=== PATIENT | male | born 1945 | race African-American/Black ===

== ENCOUNTER 2016-12-20 05:42 | Emergency (ER) | payer OTHER ==
[~2016-12-20] VITALS: Ht 162.6 cm; Wt 72.6 kg
[~2016-12-20 05:42] MED LIST: ACIDOPHILUS1 CAP PO; AMBIEN10 M1 PO; APIX5T PO; CARISOPRODOL350 MG PO; CIMZIA200 MG/ML SC; COLACE100 M1 PO; COUMADIN 1 MG TA1 MG PO; COUMADIN 5 MG TA5 MG PO; COUMADIN2.5 M1 PO; COUMADIN5 M2 PO; DILAUDID2 MG PO; DILTIAZEM240 M1 PO; DIOVAN160 MG PO; DOCUSATE SODIU100 MG PO; ELIQUIS2.5 MG PO; FLORASTOR250 MG PO; GAS RELIEF180 MG PO; HYDROCODONE BIT1 T26 PO; LASIX40 M1 PO; LOPERAMIDE2 MG PO; LOPRESSOR 12.12.5 MG PO; LOVENOX100 MG/1 M SC; MASON NATURAL325 MG PO; MERCAPTOPURINE50 MG PO; METOPROLOL TART25 M1 PO; MIRALAX119 GM PO; MULTI-DAY VITA1 EACH PO; NOVOLOG100 U/ML SC; PANTOPRAZOLE SO40 M1 PO; PERCOCET 5-3251 EACH PO; PREDNISONE 20MG20 MG PO; PREDNISONE20 M1 PO; SENNA PLUS TAB1 EACH PO; SENOKOT8.6 M2 PO; TRAMADOL50 MG PO; TYLENOL TAB 32325 MG PO; ULTRAM(MONOGRAP50 MG PO; VITAMIN D32000 I1 PO; VOLTAREN100 GM TOP; WARFARIN SODIU2.5 M1 PO; WARFARIN SODIUM5 M1 PO
--- NOTE | 2016-12-20 05:56 | ED UPPER/LOWER EXTREMITY COMPL ---
See Addendum History of Present Illness General Chief Complaint: Lower Extremity Problems Stated Complaint: "BIBA PER EMS BILAT.LEG PAIN" Source: patient, family, old records, EMS Exam Limitations: no limitations Vital Signs & Intake/Output Vital Signs & Intake/Output Vital Signs Date Time Temp Pulse Resp B/P B/P Pulse O2 O2 Flow FiO2 Mean Ox Delivery Rate 12/20 0657 86 20 124/69 96 Nasal 2.0L Cannula 12/20 0553 97.6 101 24 169/113 94 Nasal 3.0L Cannula Allergies Coded Allergies: morphine (n/v 02/16/16) Reconcile Medications Diclofenac Sodium (Voltaren) 100 GM GEL..GRAM. 1 KEYANA TOP 4 TIMES/DAY HIP PAIN Furosemide (Lasix) 40 MG TABLET 1 TAB PO EOD DIURETIC (Reported) Metoprolol Tartrate 25 MG TABLET 0.5 TAB PO BID BP (Reported) Multivitamin (Multi-Day Vitamins) 1 EACH TABLET 1 TAB PO DAILY SUPPLEMENT ( Reported) Oxycodone HCl/Acetaminophen (Percocet 5-325 MG Tablet) 1 EACH TABLET 2 TAB PO BID PRN HIP PAIN Pantoprazole Sodium 40 MG TABLET.DR 1 TAB PO DAILY AC GI (Reported) Valsartan (Diovan) 160 MG TABLET 1 TAB PO DAILY BP (Reported) Warfarin Sodium (Coumadin) 2.5 MG TABLET 1 TAB PO ONCE A WEEK BLOOD THINNER ( Reported) ON Warfarin Sodium (Coumadin) 2.5 MG TABLET 5 MG PO BLOOD THINNER (Reported) SUNDAY - SUNDAY Zolpidem Tartrate (Ambien) 10 MG TABLET 0.5 TAB PO QPMP PRN SLEEP (Reported) Triage Note: PT WITH HX DVT BIBA C/O SOB AND BILAT LEG PAIN. PT REPORTS LEFT LEG INTIALLY HURTING 3 DAYS AND THEN THE RIGHT LEG HURTING. PT STATES "MY PAIN IS SO BAD ITS TAKING MY BREATH AWAY" Triage Nurses Notes Reviewed? yes HPI: Patient brought in by ambulance for evaluation of bilateral leg pain. The pain started 3 days ago but has been steadily getting worse. The pain is in his calves as well as his thighs. The pain is cramping in nature. There is no radiation outside of his legs. There is no aggravating or mitigating factors. Patient states the pain is so bad it takes his breath away. Patient denies chest pain. There is no orthopnea. No dyspnea on exertion. Patient uses oxygen at night. (MARCOS ROSEN,WALLY Wbeb) Past History Travel History Traveled to [place] past 21 day No Medical History Any Pertinent Medical History? see below for history Neurological: NONE EENT: NONE Cardiovascular: hypertension, DVT Respiratory: pulmonary embolism, pneumonia, 07/04/2012: Quantiferon testing TB- negative. 2015- TB NEG Gastrointestinal: Crohn's disease, GI BLEED Hepatic: NONE Renal: chronic kidney disease Musculoskeletal: NONE, osteoarthritis Psychiatric: NONE Endocrine: NONE Blood Disorders: anemia Cancer(s): NONE MANAGER STRATEGY/Reproductive: NONE History of MRSA: No History of VRE: No History of CDIFF: No Pneumonia Vaccine: 04/22/15 Surgical History Surgical History: appendectomy, hip replacement, subtotal colectomy with ileorectal anastomosis excision left thigh neuroma IVC FILTER Psychosocial History Who do you live with Spouse Services at Home None What is your primary language Greenlandic Tobacco Use: Quit >30 days ago ETOH Use: denies use Illicit Drug Use: denies illicit drug use Family History Family History, If Any: FATHER DAUGHTER FH: Crohn's disease Relation not specified for: Appendicitis Hx Contributory? No (MARCOS ROSEN,WALLY Webb) Review of Systems Review of Systems Constitutional: Reports: no symptoms. EENTM: Reports: no symptoms. Respiratory: Reports: see HPI, short of breath. Cardiovascular: Reports: no symptoms. Gastrointestinal/Abdominal: Reports: no symptoms. Genitourinary: Reports: no symptoms. Musculoskeletal: Reports: see HPI. Skin: Reports: no symptoms. Neurological/Psychological: Reports: no symptoms. Hematologic/Endocrine: Reports: no symptoms. Immunological: Reports: no symptoms. All Other Systems: Reviewed and Negative (MARCOS ROSEN,WALLY Webb) Physical Exam Physical Exam General Appearance: well developed/nourished, alert, awake, severe distress Head: atraumatic, normal appearance Eyes: Bilateral: PERRL, EOMI. Ears, Nose, Throat: normal pharynx, normal ENT inspection, hearing grossly normal Neck: normal inspection, supple, full range of motion Cardiovascular/Respiratory: normal breath sounds, normal peripheral pulses, regular rate/rhythm, no respiratory distress Back: normal inspection Leg Left: swelling, tenderness Leg Right: swelling, tenderness Neurologic/Tendon: normal sensation, normal motor functions, normal tendon functions Skin: intact, normal color, warm/dry Lymphatic: no anterior cervical michael (MARCOS ROSEN,WALLY Webb) Progress Differential Diagnosis: compartment syndrome, contusion, DVT, sprain Plan of Care: Orders Procedure Date/time Status Telemetry/Motor Transport Inspector 12/20 645 Active US-EXT BILAT VENOUS DOPPLER 12/21 551 Active URINALYSIS 12/21 551 Active PARTIAL THROMBOPLASTIN TIME 12/21 551 Complete PROTHROMBIN TIME 12/21 551 Complete COMPREHENSIVE METABOLIC PANEL 12/21 551 Complete CBC WITHOUT DIFFERENTIAL 12/21 551 Complete EKG 12/20 549 Active Laboratory Tests 12/20/16 0630: Anion Gap 11, Estimated GFR 37 L, BUN/Creatinine Ratio 12.2, Glucose 91, Calcium 8.5, Total Bilirubin 0.4, AST 23, ALT 34, Alkaline Phosphatase 69, Total Protein 6.9, Albumin 3.8, Globulin 3.1, Albumin/Globulin Ratio 1.2 12/20/16 0600: PT 23.3 H, INR 2.24 H, APTT 31, CBC w Diff NO MAN DIFF REQ, RBC 4.99, MCV 71.5 L, MCH 22.2 L, RDW 18.2 H, MPV 8.0, Gran % 53.5, Lymphocytes % 33.3, Monocytes % 9.9 H, Eosinophils % 2.9, Basophils % 0.4, Absolute Granulocytes 3.4, Absolute Lymphocytes 2.1, Absolute Monocytes 0.6, Absolute Eosinophils 0.2, Absolute Basophils 0, PUBS MCHC 31.0 L Diagnostic Imaging: Viewed by Me: Radiology Read, Ultrasound. Discussed w/RAD: Radiology Read, Ultrasound. Initial ED EKG: NSR, nonspecific ST T wave chg, LAFB Prior EKG: unchanged Rhythm Strip: normal sinus rhythm Hand-Off Endorsed To: JASMYNE RAO DO Endorsed Time: 0700 Pending: ultrasound (MARCOS ROSEN,WALLY Webb) Departure Departure Disposition: STILL A PATIENT Condition: Stable Clinical Impression Primary Impression: Leg pain, bilateral Referrals: NAPOLEON ROSEN,TRENT Webb (PCP/Family) Departure Forms: Customer Survey General Discharge Information (MARCOS ROSEN,WALLY Webb) Departure Comments 12/20/16 8:30 AM Patient was signed out to me by Dr. Tolentino. He has some mild nausea from the Dilaudid Lower extremities were evaluated. He has +4 dorsalis pedis pulse on the left and +3 dorsalis pedis pulse on the right. Capillary refill is less than 2 seconds bilaterally. Both feet are warm. He does have lower extremity edema bilaterally ultrasound results are pending.. (MAIRA GREGG,JASMYNE Case.)
[2016-12-20 06:14] LABS: ABSOLUTE BASOPHIL COUNT 0 /CUMM (0.0-0.2); ABSOLUTE EOSINOPHIL COUNT 0.2 /CUMM (0.0-0.7); ABSOLUTE GRANULOCYTE CT 3.4 /CUMM (1.4-6.5); ABSOLUTE LYMPH COUNT 2.1 /CUMM (1.2-3.4); ABSOLUTE MONOCYTE COUNT 0.6 /CUMM (0.10-0.60); BASOPHIL % 0.4 % (0.0-2.0); EOSINOPHIL % 2.9 % (0-5); GRANULOCYTE % 53.5 % (42.2-75.2); HEMATOCRIT 35.7 % (42-52); MEAN CORPUSCULAR HGB 22.2 PG (27.0-31.0); MEAN CORPUSCULAR VOLUME 71.5 FL (80.0-94.0); PLATELET COUNT 287 /CUMM (130-400); RBC DISTRIBUTION WIDTH 18.2 % (11.5-14.5); RED BLOOD CELL CT 4.99 /CUMM (4.70-6.10); WHITE BLOOD CELL COUNT 6.4 /CUMM (4.8-10.8)
[2016-12-20 06:19] LABS: PT 23.3 SEC (9.4-12.5); PTT 31 SEC (25-37)
[2016-12-20] MEDS ORDERED: COUMADIN2.5 M1 PO (06:30)
--- NOTE | 2016-12-20 06:54 | RADIOLOGY REPORT ---
EXAMINATION: XR PORTABLE CHEST CLINICAL INFORMATION: Shortness of breath COMPARISON: 06/14/2016 TECHNIQUE: Portable frontal view of the chest was obtained. FINDINGS: Cardiac leads overlie the chest. The lungs are well expanded. Mild elevation of the right hemidiaphragm remains. There is no focal consolidation, edema, or effusion. No pneumothorax. The cardiomediastinal silhouette is within normal limits. No acute osseous abnormality. IMPRESSION: No acute pulmonary findings.
--- NOTE | 2016-12-20 09:07 | ULTRASOUND REPORT ---
EXAMINATION: US TRIPLEX OF LOWER EXTREMITIES, BILATERAL CLINICAL INFORMATION: Bilateral lower extremity edema and pain COMPARISON: Prior venous ultrasound December 2015 TECHNIQUE: Color-flow triplex imaging with spectral analysis and compression Doppler were performed on the lower extremities. FINDINGS: Right lower extremity: There appears to be some thrombus resulting in lack of compression compression of the posterior portion of the duplicated superficial femoral vein although less prominent than seen on prior ultrasound of October 2015. This was not appreciated on the December 2015 exam. Respiratory variation, normal compression and augmented flow are noted throughout the deep venous system in the remaining lower extremities. The visualized common femoral vein, profunda femoral vein, popliteal vein and midcalf peroneal and posterior tibial venous segments show no evidence of deep venous thrombosis. There is no Shah's cyst. Left lower extremity: Respiratory variation, normal compression and augmented flow are noted throughout the lower extremities. The visualized common femoral vein, superficial femoral vein, profunda femoral vein, popliteal vein and midcalf peroneal and posterior tibial venous segments show no evidence of deep venous thrombosis. There is no Shah's cyst IMPRESSION: Right lower extremity: Findings compatible with persistent or recurrent possibly chronic venous thrombosis in the posterior portion of the duplicated superficial femoral vein and a similar location as that noted on a prior ultrasound in October 2015. Left lower extremity: No evidence for deep vein thrombosis This critical result was discussed with Dr. oYvany Gambino at 9:00 AM approximately on 12/20/2016 and it was ascertained that the content and urgency of the report was understood at the time of direct communication.
[2016-12-20 10:45] VITALS: BP 113/64
== END 2016-12-20 11:00 ==
LOC: ERH 05:42
PROVIDERS: Emergency Medicine
DX: M79.605 Pain in left leg (principal)
CPT/HCPCS: 93005; 93010; 93970; 96374; 96375; J1885

== ENCOUNTER 2016-12-26 15:37 | Observation (INO) | payer OTHER ==
[~2016-12-26] VITALS: Ht 162.6 cm; Wt 72.6 kg
--- NOTE | 2016-12-26 15:59 | NUR ---
PT BIBA FROM HOME FOR C/O BILAT LOWER EXT. SWELLING. PT SEEN HERE LAST WEEK FOR SAME. PT STATES HIS PAIN IS MORE FREQUENT AND IS HAVING TROUBLE SLEEPING. 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 PT HAS APPT. WITH NEURO TOMORROW.
--- NOTE | 2016-12-26 18:07 | ED UPPER/LOWER EXTREMITY COMPL ---
See Addendum History of Present Illness General Chief Complaint: Lower Extremity Injury Stated Complaint: BIBA FOR L LEG PAIN Source: patient, family, old records Exam Limitations: no limitations Vital Signs & Intake/Output Vital Signs & Intake/Output Vital Signs Date Time Temp Pulse Resp B/P B/P Pulse O2 O2 Flow FiO2 Mean Ox Delivery Rate 12/27 1436 98.2 82 20 118/70 96 Nasal 2.0L Cannula 12/27 1004 Nasal 2.0L Cannula 12/27 0957 98.1 80 20 120/77 97 Nasal 2.0L Cannula 12/27 0723 97.3 82 20 118/79 98 Nasal 2.0L Cannula 12/27 0619 96.7 88 18 104/68 95 Nasal 2.0L Cannula 12/27 0520 97.0 77 20 117/63 95 Nasal Cannula / 0445 97.0 82 22 126/76 97 Nasal 2.0L Cannula 12/27 0221 96.5 78 20 122/74 97 Nasal 4.0L Cannula 12/27 0018 96.4 85 20 126/86 95 Nasal 4.0L Cannula 12/26 2250 97.0 83 20 120/93 94 Nasal 4.0L Cannula 12/26 2249 97.0 12/26 2209 85 Nasal 2.0L Cannula 12/26 2000 97.3 80 24 122/68 ED Intake and Output 12/27 0000 12/26 1200 Intake Total 10 Output Total Balance 10 Intake, Oral 10 Patient 160 lb Weight Weight Reported by Patient Measurement Method Allergies Coded Allergies: morphine (n/v 02/16/16) Reconcile Medications Diclofenac Sodium (Voltaren) 100 GM GEL..GRAM. 1 KEYANA TOP 4 TIMES/DAY HIP PAIN Furosemide (Lasix) 40 MG TABLET 1 TAB PO EOD DIURETIC (Reported) Metoprolol Tartrate 25 MG TABLET 0.5 TAB PO BID BP (Reported) Multivitamin (Multi-Day Vitamins) 1 EACH TABLET 1 TAB PO DAILY SUPPLEMENT ( Reported) Oxycodone HCl/Acetaminophen (Percocet 5-325 MG Tablet) 1 EACH TABLET 2 TAB PO BID PRN HIP PAIN Pantoprazole Sodium 40 MG TABLET.DR 1 TAB PO DAILY AC GI (Reported) Valsartan (Diovan) 160 MG TABLET 1 TAB PO DAILY BP (Reported) Vedolizumab (Entyvio) (Unknown Strength) VIAL (Unknown Dose) IV Q6W CROHNS ( Reported) Warfarin Sodium (Coumadin) 5 MG TABLET 1 TAB PO AD BLOOD THINNER (Reported) Warfarin Sodium (Coumadin) 2.5 MG TABLET 1 TAB PO QMON BLOOD THINNER ( Reported) Zolpidem Tartrate (Ambien) 10 MG TABLET 0.5 TAB PO QPMP PRN SLEEP (Reported) Triage Note: PT BIBA FROM HOME FOR C/O BILAT LOWER EXT. SWELLING. PT SEEN HERE LAST WEEK FOR SAME. PT STATES HIS PAIN IS MORE FREQUENT AND IS HAVING TROUBLE SLEEPING. 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 PT HAS APPT. WITH NEURO TOMORROW. Triage Nurses Notes Reviewed? yes Onset: Abrupt Duration: week(s): (worse x 1 week), constant Timing: recent history Severity Numbers: 10 Pain/Injury Location: Bilateral: Leg. Method of Injury: unknown No Modifying Factors: none Associated Symptoms: swelling HPI: 71-year-old male with history of Crohn's, DVT PE with filter in place on Coumadin she's been compliant brought in by an once complaining of progressively worsening bilateral leg pain. Pain is been present for the past 1 week. He was seen at the time at which time an ultrasound showed a chronic DVT. He was discharged home and is scheduled to see pain management tomorrow however he's been taking his oxycodone 7.5 mg without improvement of pain. It is caused him to have inability to walk now. He denies any chest pain abdominal pain shortness of breath fever chills. No rashes to the skin. The swelling to his legs is constant bilaterally no dyspnea with exertion nor orthopnea there is no radiation of the pain outside of his legs. He states the pain is localized from his knee to his groin. No abdominal pain nothing makes it better. his vascular surgeon is dr joaquin (PEDRO LUIS ZEPEDA) Past History Travel History Traveled to [place] past 21 day No Medical History Any Pertinent Medical History? see below for history Neurological: NONE EENT: NONE Cardiovascular: hypertension, DVT Respiratory: pulmonary embolism, pneumonia, 07/04/2012: Quantiferon testing TB- negative. 2015- TB NEG Gastrointestinal: Crohn's disease, GI BLEED Hepatic: NONE Renal: chronic kidney disease Musculoskeletal: NONE, osteoarthritis Psychiatric: NONE Endocrine: NONE Blood Disorders: anemia Cancer(s): NONE DIRECTOR OF SOFTWARE ENGINEERING/Reproductive: NONE History of MRSA: No History of VRE: No History of CDIFF: No Surgical History Surgical History: appendectomy, hip replacement, subtotal colectomy with ileorectal anastomosis excision left thigh neuroma IVC FILTER Psychosocial History Who do you live with Spouse Services at Home None What is your primary language Pakistani Tobacco Use: Never used ETOH Use: denies use Illicit Drug Use: denies illicit drug use Family History Family History, If Any: FATHER DAUGHTER FH: Crohn's disease Relation not specified for: Appendicitis Hx Contributory? No (PEDRO LUIS ZEPEDA) Review of Systems Review of Systems Constitutional: Reports: see HPI. All Other Systems: Reviewed and Negative Comments Review of systems: See HPI, All other systems negative. Constitutional, no chills no fever, no malaise HEENT: No visual changes no sore throat no congestion Cardiovascular: No chest pain , no palpitation Skin: no rashes, no change in skin Respiratory: No dyspnea no cough no sputum GI: No nausea no vomiting, no diarrhea, : No dysuria Muscle skeletal: No joint pain, no joint swelling, no back pain, no neck pain, Neurologic: no headache Psych: No stress Heme/endocrine: No bruising Immunology: No lymphadenopathy (PEDRO LUIS ZEPEDA) Physical Exam Physical Exam General Appearance: well developed/nourished Comments: Well-developed well-nourished person in no acute distress HEENT: Normal EENT exam; PERRL, EOMI, no nystagmus. HEAD is atraumatic. moist mucous membranes. Neck: Supple, no lymphadenopathy, normal range of motion back: notnender Cardiovascular: Regular rate and rhythms no murmurs rubs Respiratory: Chest nontender.There were no bony deformities, no asymmetry. No respiratory distress. Patient speaking in full complete sentences. Breath sounds clear to auscultation bilaterally: NO W/R/R Abdomen: Soft, nontender nondistended, no appreciable organomegaly. Normal bowel sounds. No rebound/guarding, No appreciable enlargement of the abdominal aorta, No ascites. Extremity: 2+ edema bilateral lower extremities, 3+ DP pulse b/l, full range of motion of extremities, normal and equal pulses bilaterally, 5 out of 5 strength noted to bilateral upper and lower extremities Neuro: Alert oriented x3, motor sensory normal There were no obvious focal neurologic abnormalities. Skin: No appreciable rash on exposed skin, skin is warm and dry. Psych: Mood and affect is normal, memory and judgment is normal. (BERENICE SALAS,PEDRO LUIS) Progress Differential Diagnosis: arterial insufficiency, cellulitis, CHF, compartment syndrome, contusion, DVT, fracture, gout, sprain, tendon injury Plan of Care: Orders Procedure Date/time Status Regular Diet 12/27 B Active Discharge Patient 12/27 1616 Active Discharge Patient 12/27 1441 Active PT Evaluate & Treat 12/27 0700 Active Theraputic Activities 15 Min 12/27 UNK Complete PT EVAL LOW COMPLEX 20 MIN 12/[address] in observation 12/26 1941 Active Patient Data 12/26 1941 Active Vital Signs 12/26 1941 Active Code Status 12/26 1941 Active CASE MANAGEMENT CONSULT 12/26 1940 Active PARTIAL THROMBOPLASTIN TIME 12/26 181 Complete PROTHROMBIN TIME 12/26 181 Complete COMPREHENSIVE METABOLIC PANEL 12/26 181 Complete CBC WITHOUT DIFFERENTIAL 12/27 1811 Complete Intake & Output 12/26 1801 Active Current Medications Sig/Rosy Start time Last Medication Dose Stop Time Status Admin Hydromorphone HCl 0.5 MG Q4P PRN 12/27 1400 AC 12/27 (Dilaudid) 1354 Laboratory Tests 12/26/16 1830: Anion Gap 17 H, Estimated GFR 31 L, BUN/Creatinine Ratio 12.4, Glucose 88, Calcium 9.6, Total Bilirubin 0.6, AST 30, ALT 46, Alkaline Phosphatase 72, Total Protein 7.9, Albumin 4.5, Globulin 3.4, Albumin/Globulin Ratio 1.3, PT 22.8 H, INR 2.19 H, APTT 33, CBC w Diff NO MAN DIFF REQ, RBC 4.81, MCV 71.2 L, MCH 22.5 L, RDW 17.3 H, MPV 8.2, Gran % 64.7, Lymphocytes % 25.9, Monocytes % 6.9, Eosinophils % 1.7, Basophils % 0.8, Absolute Granulocytes 5.0, Absolute Lymphocytes 2.0, Absolute Monocytes 0.5, Absolute Eosinophils 0.1, Absolute Basophils 0.1, PUBS MCHC 31.5 L Old records were reviewed, dr rao spoke with vascular on 12/20 in regards to the ultrasound which was chronic -advised to stay on his Coumadin. Labs ordered patient medicated Dilaudid 1 mg IV d./w the pt and family all of his lab rseults, he reports much improvement in pain with medication, pt will be placed in ed obs over night for pain control, pt and case management eval in am. case d/w dr rodríguez agrees withp henry 2200 as called to the patient's bedside as his oxygen saturation was noted to be 89-90% after he was medicated with Dilaudid the patient normally uses 2 L of oxygen at night. He denies shortness of breath dizziness lightheadedness. He has no complaints at this time mentating well we will give him a breathing treatment and continue to monitor us 12/20: IMPRESSION: Right lower extremity: Findings compatible with persistent or recurrent possibly chronic venous thrombosis in the posterior portion of the duplicated superficial femoral vein and a similar location as that noted on a prior ultrasound in October 2015. Left lower extremity: No evidence for deep vein thrombosis This critical result was discussed with Dr. Yovany Rao at 9:00 AM approximately on 12/20/2016 and it was ascertained that the content and urgency of the report was understood at the time of direct communication. IMPRESSION: 1. There is a grade 1 anterolisthesis of L4 on L5. There are bilateral foraminal disc protrusions, slightly more prominent on the right and there may be impingement on the exiting right L4 nerve root. 2. There is multilevel facet arthropathy. 3. There is no central stenosis. (PEDRO LUIS ZEPEDA) Diagnostic Imaging: Viewed by Me: Radiology Read. Discussed w/RAD: Radiology Read. Radiology Impression: PATIENT: ZACH HEATON PRESENT AGE: 71 PATIENT ACCOUNT NO: [id number] : 45 LOCATION: [facility] [place] ORDERING PHYSICIAN: WALLY RODRÍGUEZ MD SERVICE DATE: 12/26/16 EXAM TYPE: RAD - XRY-PORTABLE CHEST XRAY EXAMINATION: XR PORTABLE CHEST CLINICAL INFORMATION: Shortness of breath COMPARISON: 12/20/2016 TECHNIQUE: Portable frontal view of the chest was obtained. FINDINGS: Low lung volumes with elevated right hemidiaphragm. No dense consolidation, edema, or effusion. No pneumothorax. The cardiomediastinal silhouette is unchanged. IMPRESSION: Low lung volumes with elevated right hemidiaphragm. No dense consolidation. DICTATED BY: NYASIA ROSEN,SUNIL DATE/TIME DICTATED:12/26/162254 VICE PRESIDENT OF TALENT ACQUISITION:TRINO DATE/ TIME TRANSCRIBED:12/26/162254 CONFIDENTIAL, DO NOT COPY WITHOUT APPROPRIATE AUTHORIZATION. <Electronically signed in Other Vendor System> SIGNED BY: SUNIL MURRELL MD 12/26/162304 (PEDRO LUIS ZEPEDA) Radiology Impression: PATIENT: ZACH HEATON PRESENT AGE: 71 PATIENT ACCOUNT NO: [id number] : 45 LOCATION: [facility] [place] ORDERING PHYSICIAN: WALLY RODRÍGUEZ MD SERVICE DATE: 12/26/16 EXAM TYPE: RAD - XRY-PORTABLE CHEST XRAY EXAMINATION: XR PORTABLE CHEST CLINICAL INFORMATION: Shortness of breath COMPARISON: 12/20/2016 TECHNIQUE: Portable frontal view of the chest was obtained. FINDINGS: Low lung volumes with elevated right hemidiaphragm. No dense consolidation, edema, or effusion. No pneumothorax. The cardiomediastinal silhouette is unchanged. IMPRESSION: Low lung volumes with elevated right hemidiaphragm. No dense consolidation. DICTATED BY: SUNIL MURRELL MD DATE/TIME DICTATED:12/26/162254 VICE PRESIDENT OF TALENT ACQUISITION:TRINO DATE/ TIME TRANSCRIBED:12/26/162254 CONFIDENTIAL, DO NOT COPY WITHOUT APPROPRIATE AUTHORIZATION. <Electronically signed in Other Vendor System> SIGNED BY: SUNIL MURRELL MD 12/26/162304 Hand-Off Endorsed To: BOBO BOSS MD Endorsed Time: 0700 Pending: consult (WALLY RODRÍGUEZ MD) Hand-Off Endorsed To: YOVANY RAO DO Endorsed Time: 1500 Pending: other (bed search) (BOBO BOSS MD) Departure Departure Time of Disposition: 1937 Condition: Stable Clinical Impression Primary Impression: Leg pain Secondary Impressions: Chronic renal insufficiency, Gait instability Referrals: NAPOLEON ROSEN,TRENT Webb (PCP/Family) Departure Forms: Customer Survey General Discharge Information Observation Note Spoke With: WALLY RODRÍGUEZ MD Physician Advisor Notified: WALLY RODRÍGUEZ MD Place Patient In: ED Observation Rationale for Observation: My rational for observation is as follows [PAIN CONTROL, PATIENT HAS REQUIRED IVP AIN CONTROL, WILL REQUIRE PT CONSULT FOR POSSIBLE REHAB PLACEMENT, PREMATURE DISCHARGE WOULD BE MEDICALLY HARMFUL PATIENTS GAIT NOT AT BASELINE (PEDRO LUIS ZEPEDA) Departure Disposition: STILL A PATIENT PA/ELEMENTARY SCIENCE TEACHER Co-Sign Statement Statement: ED Attending supervision documentation- [X] I saw and evaluated the patient. I have also reviewed all the pertinent lab results and diagnostic results. I agree with the findings and the plan of care as documented in the PA's/ELEMENTARY SCIENCE TEACHER's documentation. [X] I have reviewed the ED Record and agree with the PA's/ELEMENTARY SCIENCE TEACHER's documentation. [] Additions or exceptions (if any) to the PAs/ELEMENTARY SCIENCE TEACHER's note and plan are summarized below: [] (MARCOS ROSEN,WALLY Webb) Departure Comments 12/27/16 4:20 pm The patient was signed out to me by Dr. Boss. He is pending transport to [place] for short-term rehabilitation. He was observed and was unable to ambulate without significant pain and difficulty.It was therefore determined that he would best be served by short-term rehabilitation and further outpatient workup. He is being anticoagulated and is currently on Coumadin INR today was 2.1. He is on home O2. (YOVANY RAO DO) ED Attending Observation Initial Observation Note: I have seen and personally examined ZACH HEATON on 12/26/16 at 1942. I agree with the current emergency department documentation. The disposition (admission or discharge) is uncertain at this time, he needs a period of observation for the following reason(s): [Intractable pain in his left leg. His workup has been negative however he is require pain control. Patient will have physical therapy evaluation and management evaluation of the morning. It is painful to be controlled with medications the patient may be able to be discharged to short-term rehabilitation however if his pain cannot be controlled on admission to the hospital for further workup.] The ED Nurse caring for this patient has been personally informed as to what the patient is being observed for. Observation Re-Evaluation: I have reevaluated ZACH HEATON on 12/26/16 at 2241. The physical findings that support the continued need to observe this patient include [patient wears nocturnal oxygen. Patient oxygen saturation is running a little low at 92%. His states that his legs have been more swollen than normal. Patient does have fine bibasilar rales. His oxygen has been increased to 4 L. Patient will have a chest x-ray and 40 mg of IV Lasix and reevaluate. If the patient improves then continue with the current plan however if his oxygen and remained so he may require admission to the hospital for pulmonary edema.]. (MARCOS ROSEN,WALLY Webb) Observation Re-Evaluation: I have reevaluated ZACH HEATON on 12/27/16 at 1030. The physical findings that support the continued need to observe this patient include continued pain, inability to ambulate.. (GERA ROSEN,BOBO) Initial Observation Note: I have seen and personally examined ZACH HEATON on 12/27/16 at 1601. I agree with the current emergency department documentation. The disposition (admission or discharge) is uncertain at this time, he needs a period of observation for the following reason(s): [pain control] The ED Nurse caring for this patient has been personally informed as to what the patient is being observed for. (YOVANY RAO DO)
--- NOTE | 2016-12-26 18:10 | NUR ---
PT CRYING IN PAIN.
--- NOTE | 2016-12-26 18:10 | NUR ---
EXAMINED BY MARITZA NG.
--- NOTE | 2016-12-26 18:36 | NUR ---
MEDICATED FOR PAIN.
--- NOTE | 2016-12-26 18:36 | NUR ---
LABS SENT (BLUE,SST,LAV,SIERRA)
[2016-12-26] MEDS ORDERED: COUMADIN5 M2 PO (18:41)
[2016-12-26] MEDS ORDERED: COUMADIN2.5 M1 PO (18:42)
[2016-12-26] MEDS ORDERED: ENTYVIO300 M1 IV (18:43)
[2016-12-26 18:52] LABS: ABSOLUTE BASOPHIL COUNT 0.1 /CUMM (0.0-0.2); ABSOLUTE EOSINOPHIL COUNT 0.1 /CUMM (0.0-0.7); ABSOLUTE MONOCYTE COUNT 0.5 /CUMM (0.10-0.60); BASOPHIL % 0.8 % (0.0-2.0); EOSINOPHIL % 1.7 % (0-5); GRANULOCYTE % 64.7 % (42.2-75.2); HEMATOCRIT 34.3 % (42-52); MEAN CORPUSCULAR HGB 22.5 PG (27.0-31.0); MEAN CORPUSCULAR HGB CONC 31.5 G/DL (33.0-37.0); MEAN CORPUSCULAR VOLUME 71.2 FL (80.0-94.0); MEAN PLATELET VOLUME 8.2 FL (7.4-10.4); PLATELET COUNT 265 /CUMM (130-400); RBC DISTRIBUTION WIDTH 17.3 % (11.5-14.5); RED BLOOD CELL CT 4.81 /CUMM (4.70-6.10); WHITE BLOOD CELL COUNT 7.7 /CUMM (4.8-10.8)
[2016-12-26 18:57] LABS: PT 22.8 SEC (9.4-12.5); PTT 33 SEC (25-37)
--- NOTE | 2016-12-26 19:21 | NUR ---
PT SLEEPING ON STRETCHER. NO APPARENT DISTRESS NOTED
--- NOTE | 2016-12-26 19:41 | NUR ---
MARITZA NG AT BEDSIDE TO DISCUSS POC. PT TO BE PLACED ON ED OBSERVATION FOR PHYSICAL THERAPY EVAL TOMMORROW MORNING
--- NOTE | 2016-12-26 21:37 | NUR ---
ATTEMPTED TO ASSIST PT TO COMMODE WITH LESVIA MCDERMOTT. PT WAS EXTREMLY WEAK AND BEGAN TO HAVE SHORTNESS OF BREATH. PT PLACED ON COMMODE. SPO2 ASSESED AND DECREASED TO 85% ON RA. PT GIVEN 2LPM O2 VIA NC. SPO2 INCREASED TO 94% ON O2. MARITZA KLINE
--- NOTE | 2016-12-26 22:03 | NUR ---
PT MEDICATED WITH DILAUDID 1MG IVP. PT SPO2 87% ON 2LPM. PT DENIED SOB AND PAIN OTHER THAN IN LOWER EXTREMITY. O2 INCREASED TO 3LPM. MARITZA NG AT BEDSIDE FOR EVAL. RESPIRATORY PAGED FOR MARIANNE KOCH
--- NOTE | 2016-12-26 22:11 | NUR ---
RESPIRATORY AT BEDSIDE FOR TREATMENT
--- NOTE | 2016-12-26 22:33 | NUR ---
LAGUNAS AT BEDSIDE TO DISCUSS POC
--- NOTE | 2016-12-26 22:40 | NUR ---
PORTABLE X-RAY AT BEDSIDE
--- NOTE | 2016-12-26 22:49 | NUR ---
PT MEDICATED WITH LASIX 40MG IVP AND OFIRMEV 1,000MG IV
--- NOTE | 2016-12-26 23:05 | RADIOLOGY REPORT ---
EXAMINATION: XR PORTABLE CHEST CLINICAL INFORMATION: Shortness of breath COMPARISON: 12/20/2016 TECHNIQUE: Portable frontal view of the chest was obtained. FINDINGS: Low lung volumes with elevated right hemidiaphragm. No dense consolidation, edema, or effusion. No pneumothorax. The cardiomediastinal silhouette is unchanged. IMPRESSION: Low lung volumes with elevated right hemidiaphragm. No dense consolidation.
--- NOTE | 2016-12-26 23:59 | NUR ---
PT SLEEPING ON STRETCHER. NO APPARENT DISTRESS NOTED
--- NOTE | 2016-12-27 02:20 | NUR ---
PT PLACED ON BED REED IN ATTEMPT TO HAVE BM WITH NEGATIVE RESULTS. PT BEGAN COMPLAINING OF NAUSEA AND VOMITED GREEN EMISIS. PT MEDICATED WITH ZOFRAN 4MG IVP
--- NOTE | 2016-12-27 03:06 | NUR ---
PT'S , LILIAN, GOING HOME FOR THE NIGHT. SHE CAN BE REACHED VIA HOME PHONE OR CELL PHONE
--- NOTE | 2016-12-27 03:31 | NUR ---
PT REPORT RECEIVED FROM LM GROVER, PT CARE ASSUMED. PT RESTING COMFORTABLY AT THIS TIME AND AWAITING PT EVAL IN AM.
--- NOTE | 2016-12-27 04:45 | NUR ---
PT C/O OF INCREASED LEG PAIN, DR RODRÍGUEZ AWARE. PT MEDICATED WITH 0.5MG OF IV DILUADID PER eMAR.
--- NOTE | 2016-12-27 05:20 | NUR ---
PT REPORTS RELIEF FROM DILAUDID, VSS NOTED
--- NOTE | 2016-12-27 06:28 | NUR ---
BP RESPONDING TO LOPRESSOR, BP164/70, HR 78 AWARE
--- NOTE | 2016-12-27 07:24 | NUR ---
PT AWAKE AND ALERT FOR VITALS AT THIS TIME, AWARE THAT HE WILL BE EVALUATED BY PT THIS AM. AT THIS TIME PT WPOULD LIKE TO WAIT TO EAT BREAKFAST
--- NOTE | 2016-12-27 08:30 | NUR ---
PT EVALUATED BY PT, PT STATES THAT PT NEEDS REHAB.
--- NOTE | 2016-12-27 08:42 | NUR ---
PT SITTING UP IN CHAIR COMPLAINS OF NAUSEA MEDICATED PER ORDER
--- NOTE | 2016-12-27 09:26 | NUR ---
12/27 CASE MGMT- MET WITH PT AND PT FAMILY- INTRODUCED SELF AND EXPLAINED ROLE OF LANDING SIGNAL OFFICER. PT AWARE THAT PT IS SUGGESTING SHORT TERM REHAB. BROCHURE WITH FACILITIES GIVEN TO PT AND AWARE THAT I WILL RETURN FOR CHOICES OF FACILITIES SHORTLY. CASE MGMT WILL CONTINUE TO FOLLOW.
--- NOTE | 2016-12-27 09:57 | NUR ---
PT RESTING ON STRETCHER AWAKE AND ALERT FOR VITALS, FAMILY AT BEDSIDE AWARE THAT CASE MANAGEMENT IS SEARCHING FOR REHAB UNIT
--- NOTE | 2016-12-27 10:25 | NUR ---
12/27 CASE MGMT- PT FIRST CHOICE [facility], SECOND CHOICE [facility]OP [facility] AND THIRD CHOICE [facility]. MIMR DONE, W10 STARTED, COMMON KEYANA DONE, BED SEARCH BEING PERFORMED. CASE MGMT WILL CONTINUE TO FOLLOW.
--- NOTE | 2016-12-27 10:53 | NUR ---
PT REQUESTING PAIN MEDS FOR HER LEG PAIN AT THIS TIME. MD KLINE
--- NOTE | 2016-12-27 11:06 | NUR ---
PT MEDICATED FOR LEG PAIN, REPOSITIONED IN BED AT THIS TIME. DAUGHTER REMAINS AT BEDSIDE
--- NOTE | 2016-12-27 12:03 | NUR ---
PT NOTED TO BE SLEEPING AT THIS TIME REGULAR RESP RATE NOTED AND CASE MANAGEMENT CONTINUES TO LOOK FOR PLACEMENT
--- NOTE | 2016-12-27 12:38 | NUR ---
12/27 CASE MGMT- BED SEARCH STILL BEING PERFORMED. CASE MGMT WILL CONTINUE TO FOLLOW.
--- NOTE | 2016-12-27 13:55 | NUR ---
PT MEDICATED FOR PAIN ORDERED
--- NOTE | 2016-12-27 14:03 | NUR ---
PT PROVIDED WITH ICE CHIPS. PER DAUGHTER PT HAS BEEN AVAILABLE AT [facility] [place]. PT AND FAMILY AWARE THAT WE ARE WAITING ON PAPERWORK AND THEN TRANSPORT WILL BE CALLED, PT REPOSITIONED IN BED , PROVIDED WITH ICE CHIPS PER HIS REQUEST. FOOD TRAY ORDERED DUE TO PT DID NOT FEEL LIKE EATING EARLIER
--- NOTE | 2016-12-27 14:03 | NUR ---
ZACH HEATON Nurse Note by: MARLEN YOUSIF. I agree with the BENCH HAND findings/evaluation of this patient's condition. Entered by: MARLEN YOUSIF Date: 12/27/16 Time: 1483
[2016-12-27 14:36] VITALS: BP 118/70
--- NOTE | 2016-12-27 14:41 | NUR ---
12/27 case mgmt- SPOKE WITH MASON AT [facility],SHE SPOKE WITH MINH CASE MGMT DEPT ALREADY AND HAS AUTH FROM [facility] AND IS OFFERING PT A BED FOR TODAY. PT AND PT AWARE AND IN AGREEMENT WITH PLAN FOR D/C TO [facility]. ENVELOPE BEING GATHERED. MARLEN GROVER AWARE TO CALL FOR REPORT AND WILL PROVIDE PHONE NUMBER FOR REPORT. DR BOSS AWARE.
--- NOTE | 2016-12-27 14:56 | NUR ---
REPORT CALLED TO MEJIA
== END 2016-12-27 16:22 ==
LOC: ERH 15:37 → ERHI 19:42
PROVIDERS: Physician Assistant Medical; ADMIT Emergency Medicine
DX: M79.662 Pain in left lower leg (principal); Z86.718 Personal history of other venous thrombosis and embolism; Z79.01 Long term (current) use of anticoagulants; K50.90 Crohn's disease, unspecified, without complications; I12.9 Hypertensive chronic kidney disease with stage 1 through stage 4 chronic kidney disease, or unspecified chronic kidney disease; N18.9 Chronic kidney disease, unspecified
CPT/HCPCS: 1263; 6090; 96374; 96375; 96376; 97161-GP; 97530-GP; G0378; J0131; J1940; J2405

== ENCOUNTER 2017-09-10 03:55 | Inpatient (IN) | payer OTHER ==
[~2017-09-10] VITALS: Ht 162.6 cm; Wt 72.6 kg
[~2017-09-10 03:55] MED LIST changes: +CYCLOBENZAPRINE10 M1 PO; +CYCLOBENZAPRINE5 M2 PO; +DAILY VALUE1 EACH PO; +ENTYVIO300 M1 IV; +FERROUS SULFAT325 M2 PO; +FUROSEMIDE40 M1 PO; +LIDODERM1 EACH TOP; +Lidoderm EXT; +PERCOCET 10-321 EACH PO; +VITAMIN C500 M4 PO; +VITAMIN D2000 UNI1 PO
[2017-09-10 06:47] LABS: PT 11.4 SEC (9.4-12.5)
[2017-09-10 09:17] LABS: ABSOLUTE BASOPHIL COUNT 0 /CUMM (0.0-0.2); ABSOLUTE EOSINOPHIL COUNT 0.3 /CUMM (0.0-0.7); ABSOLUTE GRANULOCYTE CT 2.9 /CUMM (1.4-6.5); ABSOLUTE LYMPH COUNT 1.4 /CUMM (1.2-3.4); ABSOLUTE MONOCYTE COUNT 0.4 /CUMM (0.10-0.60); BASOPHIL % 0.8 % (0.0-2.0); EOSINOPHIL % 5.2 % (0-5); GRANULOCYTE % 57.5 % (42.2-75.2); MEAN CORPUSCULAR HGB CONC 32.4 G/DL (33.0-37.0); MEAN CORPUSCULAR VOLUME 83.1 FL (80.0-94.0); MEAN PLATELET VOLUME 7.9 FL (7.4-10.4); PLATELET COUNT 179 /CUMM (130-400); RBC DISTRIBUTION WIDTH 17.5 % (11.5-14.5); RED BLOOD CELL CT 4.21 /CUMM (4.70-6.10)
--- NOTE | 2017-09-10 11:17 | Operative Report ---
Operative/Inv Procedure Report Surgery Date: 09/10/17 Name of Procedure: 1. C3-7 laminectomy 2. 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 Operative/Procedure Note Note: Patient was taken the operating room. After appropriate patient identification and surgical timeout, the patient had neurophysiologic monitoring leads placed and baseline recordings were obtained. He then underwent the smooth induction of general endotracheal anesthesia without incident with the neck in a neutral position. Monitoring was stable. A Tyler catheter was sterilely inserted. DVT prophylaxis was utilized throughout the case. Patient was given 2 g of IV Kefzol and preoperative prophylaxis. With all tubes and lines secured in the blood pressure well controlled, the patient was placed in the Schmidt 3 point head fixation device was applied and carefully turned to the prone position on gel rolls taking care to ensure that all pressure points were well-padded. The neck was maintained in a neutral to slightly lordotic position and fixed to the table. Monitoring was stable with the patient to the prone position. Shoulders were retracted downward with tape. The posterior neck was widely prepped and draped in usual sterile fashion using povidone iodine solution. A vertical midline skin incision was marked from C2- T1 and infiltrated with 10 mL of local anesthetic. Skin incision was made with a 10 blade knife. Dissection was carried down through the subcutaneous tissue with the Bovie the ligamentum nuchae a. Ligament was incised in the midline and a subperiosteal dissection of the cervical paravertebral muscles was performed bilaterally with the Bovie exposing underlying spinous processes lamina and facet joints bilaterally. We extended the exposure to the lateral aspect of the lateral masses from C3 to C7 bilaterally and self-retaining retractors were placed beneath the muscle. A Eldridge 4 elevator was placed in the presumed C3/4 facet joint and a lateral cervical x-ray was obtained and confirmed this to be the correct level. With the levels verified, we proceeded to drilling the lateral masses and decoritcating the facet joints with the drill prior to screw insertion. Entry points for the lateral mass screws were selected from C3 to C7 bilaterally, medial to the midpoint of the lateral mass and marked with a soo bur. Screw holes were then drilled using the Neurescue to a depth of 12 mm and with a 30 lateral and rostral angulation. All holes were palpated with a ball-tipped probe and showed no evidence of cortical breakthrough. The holes were sounded with a ball-tipped probe and showed no evidence of cortical breakthrough. A laminectomy of C3, C4, C5, C6, and the rostral half of C7 was performed using combination of the bone scalpel and Kerrison rongeurs. Bone was passed off to the back table and saved for arthrodesis. Hemostasis was obtained with irrigation and flowseal in the lateral epidural gutters. The facet joints of C3 4, C4 5, C5 6, and C6 7 were packed with morcellated autograft packed bilaterally as well as over the dorsal aspect of the lateral masses which were also decorticated. We then placed a 3.5 x 12 mm screws bilaterally from C3 to C7 without complication. 70 mm titanium rods were then gently lordosis and top loaded into the screws from C3 to C7 bilaterally. Locking caps were placed. Screws were then finally tightened with an antitorque device. Meticulous hemostasis was achieved using combination of bipolar and Surgifoam. Neurophysiologic monitoring was noted to be stable following the decompression and placement of the instrumentation. The wound was copiously irrigated with sterile saline irrigation. A medium RICK drain was placed into the wound and secured to the skin with a 2-0 nylon suture. We then began wound closure. Deep muscle was reapproximated with interrupted 0 Vicryl suture. The ligamentum nuchae was reapproximated with interrupted 0 Vicryl suture and the subcutaneous tissue was irrigated and closed in layers with a 2-0 Vicryl suture. The skin was closed with landy. The wound was cleaned and dried. Bacitracin and a sterile occlusive dressing was placed. Placed in a hard cervical collar, taken out of the [place] and returned to the supine position. He was taken out of the Schmidt, awakened, extubated, and taken to PACU in stable condition. He was noted to be moving all 4 extremities at the completion of the case. All sponge, needle, and instrument counts were correct at the completion of the procedure 3. Neurophysiologic monitoring was stable. Discharge Disposition: PACU
--- NOTE | 2017-09-10 11:23 | Operative Report ---
Operative/Inv Procedure Report Surgery Date: 09/10/17 Name of Procedure: C3 to C7 laminectomy and posterior fusion using autograft use of [employer] lateral mass system Pre-Operative Diagnosis: Cervical spondylitic myelopathy Post-Operative Diagnosis: Same Estimated Blood Loss: 50ml to 100ml Surgeon/Oracle Iam Consultant: Hubert Valdivia MD,Marina Bonilla Anesthesia: general endotracheal tube Operative/Procedure Note Note: After successful administration of general endotracheal anesthesia all lines tubes and monitors were placed by the anesthesia team the patient was positioned in Schmidt fixation prone on longitudinal gel rolls and all pressure points padded. We palpated the spinous process of C3 through C7, 10 mL of lidocaine with epinephrine was infiltrated in subcutaneous tissues after the patient was prepped and draped in usual standard fashion. A #10 blade was used to incise the skin and We deepened the incision with Bovie cautery down to the deep cervical fascia which was divided and a subperiosteal dissection was carried out exposing the spinous processes and lamina of C3 4 567. We exposed the lateral aspect of the transverse processes, we confirmed level with fluoroscopic guidance after levels were confirmed we denuded the joint spaces drill ship pilot holes the [place] in the mid position of the lateral masses of C3 4 5 6 and 7 this was deepened with a 12 mm drill and tapped with the appropriate tap. All holes were palpated, we then used the bone scalpel to make cuts the lateral aspect of the lamina at the junction of lateral masses bilaterally removing the lamina of C3 4 5 6 and the superior aspect lamina of C7, motors and sensors were stable after the decompression. We then placed 3.5 x 12 mm lateral mass screws at C3 4 5 6 and 7 the lateral aspects of the lateral masses were decorticated as were the joints and packed with morselized autograft. We then placed contoured 70 mm rods bilaterally and locked in place with the set screws with a torque limiting flatbed truck driver. We copiously irrigated with bacitracin irrigation placed 1 g Vanco powder in the soft tissues thecal sac was pulsatile was no bleeding or CSF leak, the wound was then closed in layers after a separate stab incision made for a #7 RICK drain to be placed subfascially with 0 Vicryls for the muscle and fascia 2-0 Vicryl deep dermis and skin was closed with landy of no on closing 20 mL of Exparel was infiltrated in subcutaneous tissues and muscles on closing. At the end the case a dry sterile dressing was applied all needle counts sponge and instruments were correct patient to recovery in stable condition. The patient was placed in a hard cervical collar.
[2017-09-10 14:32] VITALS: BP 127/77
--- NOTE | 2017-09-10 16:42 | Admission Core Measures ---
Acute Coronary Syndrome (CM) ACS Core Measures Acute Coronary Syndrome Diagnosis No Congestive Heart Failure (NEW) CHF Core Measures Congestive Heart Failure Diagnosis No Cerebrovascular Accident (NEW) CVA Core Measures CVA/TIA Diagnosis No Venous Thromboembolism VTE Core Sophia (View Protocol) VTE Risk Factors Surgery No Mechanical VTE Prophylaxis d/t N/A MechProphylax Ordered No VTE Pharm Prophylaxis d/t NA PharmProphylax ordered Problem List As ranked by this Provider includes Assessment & Plan 1. Cervical spinal stenosis HOME MEDS Home Med List Ascorbic Acid (Vitamin C) 500 MG TAB.CHEW 1 TAB PO DAILY SUPPLEMENT (Reported ) Cholecalciferol (Vitamin D3) (Vitamin D) 2,000 UNIT TABLET 1 TAB PO DAILY supplement (Reported) Cyclobenzaprine HCl (Unknown Strength) TABLET (Unknown Dose) PO QPM MUSCLE RELAXANT (Reported) Furosemide 40 MG TABLET 1 TAB PO PRN EDEMA (Reported) Metoprolol Tartrate 25 MG TABLET 0.5 TAB PO BID BP (Reported) Multivitamin (Daily Value) 1 EACH TABLET 1 TAB PO DAILY VITAMIN SUPPORT ( Reported) Oxycodone HCl/Acetaminophen (Percocet 5-325 MG Tablet) 5 MG-325 MG TABLET 1 TAB PO 4 TIMES/DAY PRN PAIN (Reported) Valsartan (Diovan) 160 MG TABLET 1 TAB PO DAILY BP (Reported) Vedolizumab (Entyvio) (Unknown Strength) VIAL (Unknown Dose) IV Q8W CROHNS ( Reported) Warfarin Sodium (Coumadin) 5 MG TABLET 1 TAB PO DAILY BLOOD THINNER (Reported )
--- NOTE | 2017-09-10 16:48 | PN- Neurosurgical ---
Subjective Subjective: POC sleepy, though comfortable after getting pain med. +uo via boateng. no oob yet. awaiting meal. denies cp/sob/n/v Objective Vital Signs and I&Os Vital Signs Date Time Temp Pulse Resp B/P B/P Pulse O2 O2 Flow FiO2 Mean Ox Delivery Rate 09/10 1432 94 Nasal 2.0L Cannula 09/10 1432 97.7 89 17 127/77 94 Nasal 2.0L Cannula Intake & Output 09/10 1600 09/10 0800 09/10 0000 09/09 1600 09/09 0800 09/09 0000 Intake Total Output Total Balance Patient 160 lb Weight Weight Reported by Patient Measurement Method Physical Exam: gen- nad, sleepy card- s1s2 rrr pulm- ctab back/neck- collar in place. per RN, scant bloody staining on dressing (just assessed and repositoned pt) ext- moves 4 extremities, follows commands, gross sensate intact, limited motor and limited strength all 4 extremities, RLE weaker than left, bl ue Assessment/Plan Assessment/Plan A- POD0 sp C3-7 lami with posterior fusion for C3-7 stenosis with myelopathy and kyphosis, wheelchair bound at baseline preop due to above dx, with multiple medical comorbidities (hx dvt/pe, ckd, chf, pulm htn, crohns, htn), currently stable with continued weakness in 4 extremities P- prn pain meds home meds, hold home coumadin alps hepsq to start pod1 strict I&Os hilton to self suction, keep in place until <20cc per shift ancef q8 while drain in place per attending dc boateng in am HL after 2L ivf hh diet as tolerated OOB with PT/ OT tomorrow c-collar at all times bl venous doppler in am (hx dvt/pe) case anna- and Pt desire placement at [facility] continue care as full admission will dw attending Core Measures Venous Thromboembolism VTE Risk Factors Surgery No Mechanical VTE Prophylaxis d/t N/A MechProphylax Ordered No VTE Pharm Prophylaxis d/t NA PharmProphylax ordered
[2017-09-10 19:10] VITALS: BP 132/68
[2017-09-10 21:10] VITALS: BP 136/70
--- NOTE | 2017-09-10 22:07 | RADIOLOGY REPORT ---
EXAMINATION: CR CERVICAL SPINE/INTRAOPERATIVE FLUOROSCOPY CLINICAL INDICATION: C3-C7 laminectomy. COMPARISON: CT scan of the cervical spine dated 08/30/2017. TECHNIQUE/FINDINGS: Fluoroscopic equipment was dedicated to the operating room for the performance of an intraoperative procedure. Single spot film was acquired and is archived in PACS. Surgical devices are seen overlying the posterior elements of the C3 vertebral body. Poorly visualized is a surgical instrument overlying the posterior elements of presumably the C5 vertebral body. Please refer to operative notes for procedural detail. FLUOROSCOPY TIME: 8 seconds. IMPRESSION: Administrative dictation for intraoperative fluoroscopy and image archiving in PACS. Please refer to operative notes for details.
[2017-09-11] VITALS (8 sets, daily range): BP systolic 120–157; BP diastolic 60–84
--- NOTE | 2017-09-11 07:28 | PN- Neurosurgical ---
See Addendum Subjective Subjective: Pt with incisional post neck pain reasonably controlled with iv dilaudid, oral percocet. No new neurological complaints. Objective Vital Signs and I&Os Vital Signs Date Time Temp Pulse Resp B/P B/P Pulse O2 O2 Flow FiO2 Mean Ox Delivery Rate 09/11 0400 99.0 79 20 134/76 91 09/11 0000 Nasal 3.0L Cannula 09/11 0000 99.7 82 20 136/84 96 09/10 2122 87 136/70 09/10 2109 98.5 87 20 136/70 92 Nasal 3.0L Cannula 09/10 191 98.6 78 20 132/68 91 Nasal 2.0L Cannula 09/10 1700 Nasal 3.0L Cannula 09/10 1600 94 Nasal 3.0L Cannula 09/10 143 94 Nasal 2.0L Cannula 09/10 143 97.7 89 17 127/77 94 Nasal 2.0L Cannula Intake & Output 09/11 0800 09/11 0000 09/10 1600 09/10 0800 09/10 0000 09/09 1600 Intake Total 210 370 Output Total 290 42 Balance -80 328 Intake, IV 210 70 Intake, Oral 300 Output, 40 42 Drainage Output, Urine 250 Patient 72.575 kg Weight Weight Reported by Patient Measurement Method Physical Exam: AF, VSS awake and alert incision is flat with min serosanguinous stain on dressing RICK with 78cc over last shift, serosanguinous neuro exam with stable spasticity bilat LE more than UE, strength maintained samson dinner last night boateng out this am on abx no LE edema, using IS with low lung volumes Current Medications: Current Medications Sig/Rosy Start time Last Medication Dose Route Stop Time Status Admin Acetaminophen 650 MG Q4P PRN 09/10 1300 AC PO Acetaminophen 1,000 MG .STK-MED ONE 09/10 1035 DC IV 09/10 1036 Bisacodyl 10 MG DAILY NEEDED PRN 09/10 1300 AC VT Cefazolin Sodium 2 GM IQ8 09/10 1600 AC 09/11 N/A 1 UNIT IV 09/13 0029 0031 Cefazolin Sodium 2,000 MG ONCE 09/10 0000 DC IV 09/10 2359 Diazepam 5 MG Q8P PRN 09/10 1300 AC PO Docusate Sodium 100 MG BID 09/10 2199 AC 09/10 PO 2123 Famotidine 20 MG BID 09/10 2199 AC 09/10 PO 2123 Heparin Sodium 5,000 UNIT Q8 09/11 0600 AC 09/11 (Porcine) SC 0607 Hydrocodone Bitart/ 1 TAB Q4P PRN 09/10 1430 DC Acetaminophen PO Hydrocodone Bitart/ 2 TAB Q4P PRN 09/10 1300 DC Acetaminophen PO Hydromorphone HCl 0.5 MG Q3P PRN 09/10 1630 AC 09/11 IV 0258 Hydromorphone HCl 0.6 MG Q3P PRN 09/10 1430 DC 09/10 IV 1526 Hydromorphone HCl 50 MG Q24H PRN 09/10 1315 CAN Sodium Chloride 45 ML IV Hydromorphone HCl 1 MG Q4-6 PRN PRN 09/10 1300 DC IV Losartan Potassium 50 MG DAILY 09/11 1000 AC PO Meperidine HCl 50 MG .STK-MED ONE 09/10 1335 DC IM 09/10 1336 Metoprolol Tartrate 12.5 MG BID 09/100 AC 09/10 PO 2123 Ondansetron HCl 4 MG Q6P PRN 09/10 1300 AC 09/10 IV 1851 Oxycodone/ 1 TAB Q4P PRN 09/10 1630 AC Acetaminophen PO Oxycodone/ 2 TAB Q4P PRN 09/10 1630 AC 09/11 Acetaminophen PO 0031 Sodium Chloride 1,000 ML Q14H 09/10 1300 AC 09/11 IV 09/11 1659 0607 Results Last 48 Hours of Labs: Laboratory Tests 09/10 09/10 0855 0634 Coagulation PT (9.4 - 12.5 SEC) 11.4 INR (0.90 - 1.17) 1.09 Hematology CBC w Diff NO MAN DIFF REQ WBC (4.8 - 10.8 /CUMM) 5.0 RBC (4.70 - 6.10 /CUMM) 4.21 L Hgb (14.0 - 18.0 G/DL) 11.4 L Hct (42 - 52 %) 35.0 L MCV (80.0 - 94.0 FL) 83.1 MCH (27.0 - 31.0 PG) 27.0 MCHC (33.0 - 37.0 G/DL) 32.4 L RDW (11.5 - 14.5 %) 17.5 H Plt Count (130 - 400 /CUMM) 179 MPV (7.4 - 10.4 FL) 7.9 Gran % (42.2 - 75.2 %) 57.5 Lymphocytes % (20.5 - 51.1 %) 28.7 Monocytes % (1.7 - 9.3 %) 7.8 Eosinophils % (0 - 5 %) 5.2 H Basophils % (0.0 - 2.0 %) 0.8 Absolute Granulocytes (1.4 - 6.5 /CUMM) 2.9 Absolute Lymphocytes (1.2 - 3.4 /CUMM) 1.4 Absolute Monocytes (0.10 - 0.60 /CUMM) 0.4 Absolute Eosinophils (0.0 - 0.7 /CUMM) 0.3 Absolute Basophils (0.0 - 0.2 /CUMM) 0 Assessment/Plan Assessment/Plan Pt POD1 s/p C3-7 lami and fusion and stable. -OOB, mobilize -PT, OT -cont RICK until less than 20cc per shift, abx until drain out -use IS 10x/hr [place] -DVT prophylaxis with SQ hep -bilat LE venous u/s this am to r/o DVT given pt hx -iv dilaudid, po valium for pain control today ok -dc planning - prefer [facility] if available -HLIV Core Measures Venous Thromboembolism VTE Risk Factors Surgery No Mechanical VTE Prophylaxis d/t N/A MechProphylax Ordered No VTE Pharm Prophylaxis d/t NA PharmProphylax ordered Attending MD Review Statement Attending Statement Attending MD Statement: examined this patient, discuss w/resident/PA/DIGITIZER OPERATOR, discussed w/nursing
--- NOTE | 2017-09-11 16:17 | ULTRASOUND REPORT ---
EXAMINATION: US TRIPLEX OF LOWER EXTREMITIES, BILATERAL CLINICAL INFORMATION: Postoperative, leg pain, history of DVT COMPARISON: Bilateral lower extremity venous Doppler study dated 05/16/2017 TECHNIQUE: Color-flow triplex imaging with spectral analysis and compression Doppler were performed on the lower extremities. FINDINGS: Respiratory variation, normal compression and augmented flow are noted throughout the lower extremities. The visualized common femoral vein, femoral vein, profunda femoral vein, popliteal vein and midcalf peroneal and posterior tibial venous segments show no evidence of deep venous thrombosis. The right calf veins are not well visualized due to overlying soft tissue edema. There is no Shah's cyst. IMPRESSION: The right calf veins are not well visualized due to overlying soft tissue edema. Otherwise, no evidence of deep venous thrombosis involving the lower extremities.
[2017-09-12 03:58] VITALS: BP 130/70
--- NOTE | 2017-09-12 07:34 | PN- Neurosurgical ---
Subjective Subjective: Pt with continued incisional post neck pain. Denies nausea this am. Objective Vital Signs and I&Os Vital Signs Date Time Temp Pulse Resp B/P B/P Pulse O2 O2 Flow FiO2 Mean Ox Delivery Rate 09/12 0358 98.7 78 20 130/70 97 09/12 0000 97 Nasal 3.0L Cannula 09/11 2346 97.7 91 18 157/64 95 Nasal Cannula 09/11 2218 82 142/68 09/11 2200 100.7 85 18 122/60 97 09/11 1853 100.5 88 18 122/60 97 Nasal 3.0L Cannula 09/11 1853 100.5 88 18 97 Nasal 3.0L Cannula 09/11 1605 100.3 89 18 150/78 92 09/11 1605 100.3 89 18 150/78 92 09/11 1358 97.8 86 18 132/80 94 Nasal 3.0L Cannula 09/11 0806 98.8 76 20 120/63 92 Nasal 2.5L Cannula 09/11 0800 92 Nasal 2.0L Cannula Intake & Output 09/12 0800 09/12 0000 09/11 1600 09/11 0800 09/11 0000 09/10 1600 Intake Total 220 1140 560 210 370 Output Total 10 402 728 290 42 Balance 210 738 -168 -80 328 Intake, IV 220 840 560 210 70 Intake, Oral 0 300 300 Number 1 0 Bowel Movements Output, 10 52 78 40 42 Drainage Output, 200 Emesis Output, Urine 150 650 250 Patient 72.575 kg Weight Weight Reported by Patient Measurement Method Physical Exam: AF this am, Tm 100.7 last pm, VSS awake and alert incision flat and dry RICK with 20cc last shift neuro exam is stable with signif spasticity bilat LE but good power all 4 extrem no LE edema samson min po yest, back on IVF voiding on own Current Medications: Current Medications Sig/Rosy Start time Last Medication Dose Route Stop Time Status Admin Acetaminophen 1,000 MG Q8H 09/12 0800 AC 09/12 N/A 1 UNIT IV 09/12 1614 0724 Acetaminophen 1,000 MG Q8H 09/11 2215 DC 09/12 N/A 1 UNIT IV 09/12 1429 0019 Acetaminophen 650 MG Q4P PRN 09/10 1300 AC PO Bisacodyl 10 MG DAILY NEEDED PRN 09/10 1300 AC ID Cefazolin Sodium 2 GM IQ8 09/10 1600 AC 09/11 N/A 1 UNIT IV 09/13 0029 2335 Diazepam 5 MG Q8P PRN 09/11 1330 AC PO Diazepam 5 MG Q8P PRN 09/10 1300 DC 09/11 PO 1155 Docusate Sodium 100 MG BID 09/10 2200 AC 09/10 PO 2123 Famotidine 20 MG BID 09/10 2200 AC 09/10 PO 2123 Heparin Sodium 5,000 UNIT Q8 09/11 0600 AC 09/12 (Porcine) SC 0538 Hydromorphone HCl 1 MG Q2-3 HRS NEEDED.. 09/11 1430 DC 09/11 IV 1427 Hydromorphone HCl 2 MG Q4P PRN 09/11 0945 AC PO Hydromorphone HCl 4 MG Q4P PRN 09/11 0945 DC PO Hydromorphone HCl 0.6 MG ONCE ONE 09/11 0930 DC 09/11 IV 09/11 0931 0940 Hydromorphone HCl 0.5 MG Q3P PRN 09/10 1630 DC 09/11 IV 0829 Losartan Potassium 50 MG DAILY 09/11 1000 AC PO Metoprolol Tartrate 12.5 MG BID 09/10 220 AC 09/10 PO 2123 Ondansetron HCl 4 MG .STK-MED ONE 09/11 1706 DC IM 09/11 1707 Ondansetron HCl 4 MG .STK-MED ONE 09/11 0918 DC IM 09/11 0919 Ondansetron HCl 4 MG Q6P PRN 09/10 1300 AC 09/11 IV 1708 Oxycodone/ 1 TAB Q4P PRN 09/10 1630 DC Acetaminophen PO Oxycodone/ 2 TAB Q4P PRN 09/10 1630 DC 09/11 Acetaminophen PO 0031 Patient Medication 1 ED ONE ONE 09/11 1630 DC 09/11 Teaching ED 09/11 1631 1641 Patient Medication 1 ED ONE ONE 09/11 1445 DC 09/11 Teaching ED 09/11 1446 1611 Promethazine HCl 25 MG Q4P PRN 09/11 1430 AC 09/11 IV 09/18 1429 2040 Sodium Chloride 1,000 ML Q14H 09/11 2030 AC 09/11 IV 09/13 0029 2039 Sodium Chloride 1,000 ML Q14H 09/10 1300 DC 09/11 IV 09/11 6305 0648 Results Last 48 Hours of Labs: Laboratory Tests 09/12 09/10 0640 0855 Chemistry Sodium Pending Potassium Pending Chloride Pending Carbon Dioxide Pending Anion Gap Pending BUN Pending Creatinine Pending BUN/Creatinine Ratio Pending Hematology CBC w Diff NO MAN DIFF REQ WBC (4.8 - 10.8 /CUMM) 5.0 RBC (4.70 - 6.10 /CUMM) 4.21 L Hgb (14.0 - 18.0 G/DL) 11.4 L Hct (42 - 52 %) 35.0 L MCV (80.0 - 94.0 FL) 83.1 MCH (27.0 - 31.0 PG) 27.0 MCHC (33.0 - 37.0 G/DL) 32.4 L RDW (11.5 - 14.5 %) 17.5 H Plt Count (130 - 400 /CUMM) 179 MPV (7.4 - 10.4 FL) 7.9 Gran % (42.2 - 75.2 %) 57.5 Lymphocytes % (20.5 - 51.1 %) 28.7 Monocytes % (1.7 - 9.3 %) 7.8 Eosinophils % (0 - 5 %) 5.2 H Basophils % (0.0 - 2.0 %) 0.8 Absolute Granulocytes (1.4 - 6.5 /CUMM) 2.9 Absolute Lymphocytes (1.2 - 3.4 /CUMM) 1.4 Absolute Monocytes (0.10 - 0.60 /CUMM) 0.4 Absolute Eosinophils (0.0 - 0.7 /CUMM) 0.3 Absolute Basophils (0.0 - 0.2 /CUMM) 0 Recent Imaging Studies: EXAM TYPE: US - US-EXT BILAT VENOUS DOPPLER EXAMINATION: US TRIPLEX OF LOWER EXTREMITIES, BILATERAL CLINICAL INFORMATION: Postoperative, leg pain, history of DVT COMPARISON: Bilateral lower extremity venous Doppler study dated 05/16/2017 TECHNIQUE: Color-flow triplex imaging with spectral analysis and compression Doppler were performed on the lower extremities. FINDINGS: Respiratory variation, normal compression and augmented flow are noted throughout the lower extremities. The visualized common femoral vein, femoral vein, profunda femoral vein, popliteal vein and midcalf peroneal and posterior tibial venous segments show no evidence of deep venous thrombosis. The right calf veins are not well visualized due to overlying soft tissue edema. There is no Shah's cyst. IMPRESSION: The right calf veins are not well visualized due to overlying soft tissue edema. Otherwise, no evidence of deep venous thrombosis involving the lower extremities. Assessment/Plan Assessment/Plan Pt POD2 s/p post cervical lami and fusion C3-7 and stable. -OOB today to chair, with PT/OT -check labs, if creatinine wnl, ok to start toradol -po percocet prn -ADAT, HLIV when taking po -cont DVT prophylaxis -IS use 10x/hr -DC planning to acute rehab if candidate Core Measures Venous Thromboembolism VTE Risk Factors Surgery No Mechanical VTE Prophylaxis d/t N/A MechProphylax Ordered No VTE Pharm Prophylaxis d/t NA PharmProphylax ordered Attending MD Review Statement Attending Statement Attending MD Statement: examined this patient, discuss w/resident/PA/SIDE LASTER, discussed w/nursing
[2017-09-12 07:55] VITALS: BP 134/62
[2017-09-12 11:01] VITALS: BP 112/68
[2017-09-12 12:54] VITALS: BP 146/78
--- NOTE | 2017-09-12 13:46 | Patient Discharge Instructions ---
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 C3/4, 5/6, 6/7 segmental posterior spinal fusion with nguyễn lateral mass screws, autograft Watch for these problems: Increasing pain despite the use of pain medication Increasing redness, warmth or swelling Drainage of any type from incision Persistent nausea and vomiting Fever greater than 101.5 degrees Other wound care: Keep wounds clean and dry. Apply clean dry gauze dressing as needed. You may shower 48 hours from surgery. Do not soak wound- no tub baths/swimming. Watch for signs of infection (drainage, redness, increased pain) Special Instructions: Continue the heparin subcutaneous for DVT prophylaxis this patient has history of PE/DVT. Coumadin may be restarted at his normal dose at postop day #14, heparin can be discontinued at that point follow up in the office in 10-14 days Diet Recommended Diet: Heart Healthy Activity Activity Self Limited: Yes Additional ACTIVITY Info: Activity as tolerated. Use assistive devices as needed Acute Coronary Syndrome Inclusion Criteria At DC or during hospital stay patient has or had the following: ACS DIAGNOSIS No Discharge Core Measures Meds if any: Prescribed or Continued at Discharge Meds if any: NOT Prescribed or Continued at Discharge Congestive Heart Failure Inclusion Criteria At DC or during hospital stay patient has or had the following: CHF DIAGNOSIS No Discharge Core Measures Meds if any: Prescribed or Continued at Discharge Meds if any: NOT Prescribed or Continued at Discharge Cerebrovascular accident Inclusion Criteria At DC or during hospital stay patient has or had the following: CVA/TIA Diagnosis No Discharge Core Measures Meds if any: Prescribed or Continued at Discharge Meds if any: NOT Prescribed or Continued at Discharge Venous thromboembolism Inclusion Criteria VTE Diagnosis No VTE Type NONE VTE Confirmed by (Test) NONE Discharge Core Measures - Per Current guidelines, there needs to be overlap - treatment for the first 5 days of Warfarin therapy. - If discharged on Warfarin prior to 5 days of - overlap therapy, the patient will need to be - assessed for post discharge needs including - *Post discharge parental anticoagulation - *Warfarin and/or parental anticoagulation education - *Follow up date to check INR post discharge At least 5 days overlap therapy as Inpatient No Meds if any: Prescribed or Continued at Discharge Note: Overlap Therapy is Warfarin and Anticoagulant Meds if any: NOT Prescribed or Continued at Discharge
--- NOTE | 2017-09-12 13:57 | Surgical Discharge Summary ---
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 DAUGHTER FH: Crohn's disease MOTHER, , Age 90; Cause: Old age. Relation not specified for: Appendicitis Psychosocial History Where Do You Live? Home Who Do You Live With? Spouse Services at Home: None What is Your Primary Language? Welsh Review of Systems: See H&P Hospital Course Course Attending Physician: Shea ROSEN,Marina Bonilla Primary Care Physician: Artemio Zhu MD Hospital Course: Admitted to the hospital and underwent elective lumbar surgery on 09/10/2017. Postoperatively he recovered on the surgical floor. He has been up with physical therapy and ambulating in the halls with assistance. His pain is controlled with oral pain medications. He is tolerating a heart healthy diet without nausea or vomiting, and has moved his bowels. His Tyler has been removed in his voiding without difficulty. Overall, he is stable for transfer to rehabilitation center. 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 use assistive devices as needed Follow-Up Instructions/Appts: Follow up as outpatient in 2 weeks
[2017-09-12 16:46] VITALS: BP 122/70
[2017-09-12 20:30] VITALS: BP 112/58
[2017-09-13 01:55] VITALS: BP 110/56
[2017-09-13 05:55] VITALS: BP 116/58
--- NOTE | 2017-09-13 07:10 | PN- Neurosurgical ---
See Addendum Subjective Subjective: Pt awake and alert, more conversive this am. Pain better controlled. Was OOB and working with PT yest. No new complaints or concerns. Objective Vital Signs and I&Os Vital Signs Date Time Temp Pulse Resp B/P B/P Pulse O2 O2 Flow FiO2 Mean Ox Delivery Rate 09/13 0155 98.8 63 18 110/56 92 09/12 2040 92 112/58 09/12 2030 98.7 92 18 112/58 91 Nasal 2.0L Cannula 09/12 1646 98.7 88 18 122/70 92 Nasal 2.0L Cannula 09/12 1600 Nasal 2.0L Cannula 09/12 1254 98.5 80 20 146/78 98 Nasal 2.0L Cannula 09/12 1112 92 112/68 09/12 1112 92 11268 09/12 1101 98.5 92 18 112 95 Nasal 2.0L Cannula 09/12 0800 95 Nasal 2.0L Cannula 09/12 0755 98.4 78 20 134/62 98 Nasal 3.0L Cannula Intake & Output 09/13 0800 09/13 0000 09/12 1600 09/12 0800 09/12 0000 09/11 1600 Intake Total 1150 900 278 674 2172 Output Total 305 324 20 10 402 Balance 845 576 380 210 738 Intake, IV 350 400 400 220 840 Intake, Oral 800 500 0 0 300 Number 3 1 0 Bowel Movements Output, 5 24 20 10 52 Drainage Output, 200 Emesis Output, Urine 300 300 150 Physical Exam: AF, VSS sat 92% RICK with 5cc overenight incision flat and without drainage neuro exam is improved with better mobility of UE, LE this am and less pain was oob yest, samson po, voiding on own and samson po no LE edema abd soft, NT Current Medications: Current Medications Sig/Rosy Start time Last Medication Dose Route Stop Time Status Admin Acetaminophen 1,000 MG Q8H 09/12 0800 DC 09/13 N/A 1 UNIT IV 09/13 0028 0045 Acetaminophen 650 MG Q4P PRN 09/10 1300 AC PO Bisacodyl 10 MG DAILY NEEDED PRN 09/10 1300 AC NC Cefazolin Sodium 2 GM IQ8 09/10 1600 DC 09/13 N/A 1 UNIT IV 09/13 0029 0100 Diazepam 5 MG .STK-MED ONE 09/12 1239 DC PO 09/12 1240 Diazepam 2 MG Q8P PRN 09/12 0745 AC 09/12 PO 1244 Diazepam 5 MG Q8P PRN 09/11 1330 DC PO Docusate Sodium 100 MG BID 09/10 2200 AC 09/10 PO 2123 Famotidine 20 MG BID 09/10 2200 AC 09/12 PO 2040 Heparin Sodium 5,000 UNIT Q8 09/11 0600 AC 09/13 (Porcine) SC 0611 Hydromorphone HCl 2 MG Q4P PRN 09/11 0945 DC PO Ketorolac 15 MG ONCE ONE 09/12 2245 DC 09/12 Tromethamine IV 09/12 2246 2240 Ketorolac 30 MG .STK-MED ONE 09/12 2239 DC Tromethamine IM 09/12 2240 Losartan Potassium 50 MG DAILY 09/11 1000 AC 09/12 PO 1112 Metoprolol Tartrate 12.5 MG BID 09/10 2200 AC 09/12 PO 1112 Ondansetron HCl 4 MG .STK-MED ONE 09/12 0928 DC IM 09/12 0929 Ondansetron HCl 4 MG Q6P PRN 09/10 1300 AC 09/12 IV 0930 Oxycodone HCl 5 MG Q4-6 PRN PRN 09/12 0745 AC 09/12 PO 1137 Oxycodone HCl 10 MG Q4-6 PRN PRN 09/12 0745 AC 09/13 PO 0610 Patient Medication 1 ED ONE ONE 09/12 1115 DC 09/12 Teaching ED 09/12 1116 1755 Promethazine HCl 25 MG Q4P PRN 09/11 1430 AC 09/11 IV 09/18 1429 2040 Sodium Chloride 1,000 ML Q14H 09/11 2030 DC 09/12 IV 09/13 0029 1755 Results Last 48 Hours of Labs: Laboratory Tests 09/12 0640 Chemistry Sodium (137 - 145 mmol/L) 143 Potassium (3.5 - 5.1 mmol/L) 3.9 Chloride (98 - 107 mmol/L) 109 H Carbon Dioxide (22 - 30 mmol/L) 23 Anion Gap (5 - 16) 11 BUN (9 - 20 mg/dL) 13 Creatinine (0.7 - 1.2 mg/dL) 1.3 H Estimated GFR (>60 ml/min) 54 L BUN/Creatinine Ratio (7 - 25 %) 10.0 Assessment/Plan Assessment/Plan Pt is POD3 s/p C3-7 lami and fusion and much improved in past 24 hrs with improved pain control and mobility. Plan: -cont to mobilize -use IS every hr -dc drain, dc abx this am -dc planning, pt stable to dc to STR when bed available -will need fu with me 2 wks for wound check and landy -cervical collar -keep incision covered for showers Core Measures Venous Thromboembolism VTE Risk Factors Surgery No Mechanical VTE Prophylaxis d/t N/A MechProphylax Ordered No VTE Pharm Prophylaxis d/t NA PharmProphylax ordered Attending MD Review Statement Attending Statement Attending MD Statement: examined this patient, discuss w/resident/PA/PROFESSOR OF VEGETABLE SCIENCE
[2017-09-13] MEDS ORDERED: HEPARIN SO5000 UNIT3 SC (08:06)
[2017-09-13] MEDS ORDERED: COUMADIN5 M2 PO (08:06)
[2017-09-13] MEDS ORDERED: FAMOTIDINE20 M1 PO (08:06)
[2017-09-13] MEDS ORDERED: LOSARTAN POTASS50 M1 PO (08:06)
[2017-09-13] MEDS ORDERED: DIAZEPAM2 M1 PO (08:06)
[2017-09-13] MEDS ORDERED: OXYCODONE HCL5 M1 PO (08:06)
[2017-09-13 13:55] VITALS: BP 124/60
[2017-09-13 13:56] VITALS: BP 144/84
== END 2017-09-13 15:20 | DRG 472 ==
LOC: SDA 03:55 → ENRESERV 13:28 → ENTRNSPT 14:10 → EDTRNSPT 14:13 → EDTRNSPTSTS 14:13 → 2NB 14:30 → CMPTRNSPT 14:34 → 2NB 16:36 → ENPENDDIS 09-13 07:59 → 2NB 09-13 15:20
PROVIDERS: Neurological Surgery
PROC: 0RG2071 Fusion of 2 or more Cervical Vertebral Joints with Autologous Tissue Substitute, Posterior Approach, Posterior Column, Open Approach (ICD-10-PCS; principal; 2017-09-10)
PROC: 00NW0ZZ Release Cervical Spinal Cord, Open Approach (ICD-10-PCS; principal; 2017-09-10)
PROC: 4A11X4G Monitoring of Peripheral Nervous Electrical Activity, Intraoperative, External Approach (ICD-10-PCS; principal; 2017-09-10)
DX: M48.02 Spinal stenosis, cervical region (principal); K50.90 Crohn's disease, unspecified, without complications; M50.01 Cervical disc disorder with myelopathy, high cervical region; I50.32 Chronic diastolic (congestive) heart failure; I13.0 Hypertensive heart and chronic kidney disease with heart failure and stage 1 through stage 4 chronic kidney disease, or unspecified chronic kidney disease; M40.209 Unspecified kyphosis, site unspecified; Z96.641 Presence of right artificial hip joint; Z79.01 Long term (current) use of anticoagulants; Z79.891 Long term (current) use of opiate analgesic; Z87.891 Personal history of nicotine dependence; D64.9 Anemia, unspecified; I25.2 Old myocardial infarction; Z86.711 Personal history of pulmonary embolism; M54.9 Dorsalgia, unspecified; M16.0 Bilateral primary osteoarthritis of hip; N18.9 Chronic kidney disease, unspecified
CPT/HCPCS: 2NBP; 36415; 36592; 72040; 82436; 87086; 93005; 93010; 93970; 97110-GO; 97116-GO; 97161-GP; 97165-GO; 97530-GO; C1713; C9290; C9399; J0131; J0690; J1170; J1644; J1885; J2405; J2550; J3370

== ENCOUNTER 2017-11-02 11:49 | Emergency (ER) | payer OTHER ==
[~2017-11-02] VITALS: Ht 162.6 cm; Wt 72.6 kg
[~2017-11-02 11:49] MED LIST changes: +DIAZEPAM2 M1 PO; +FAMOTIDINE20 M1 PO; +HEPARIN SO5000 UNIT3 SC; +LOSARTAN POTASS50 M1 PO; +OXYCODONE HCL5 M1 PO
--- NOTE | 2017-11-02 13:04 | ED GI/GU/ABDOMINAL COMPLAINT ---
History of Present Illness General Chief Complaint: Nausea, Vomiting, Diarrhea Stated Complaint: SIB DR. QUILES FOR +V, +N, ABD PAIN Source: patient, family, old records Exam Limitations: no limitations Allergies Coded Allergies: morphine (VIOLENTLY VOMITS 09/06/17) Reconcile Medications Ascorbic Acid (Vitamin C) 500 MG TAB.CHEW 1 TAB PO DAILY SUPPLEMENT (Reported ) Baclofen 10 MG TABLET 1 TAB PO BID MUSCLE SPASMS (Reported) Cholecalciferol (Vitamin D3) (Vitamin D) 2,000 UNIT TABLET 1 TAB PO DAILY supplement (Reported) Gabapentin 400 MG CAPSULE 1 CAP PO TID PAIN (Reported) Metoprolol Tartrate 25 MG TABLET 1 TAB PO BID BP (Reported) Multivitamin (Daily Value) 1 EACH TABLET 1 TAB PO DAILY VITAMIN SUPPORT ( Reported) Oxycodone HCl (Roxicodone) 5 MG TABLET 2 TAB PO Q4 HRS NEEDED PRN PAIN ( Reported) Tamsulosin HCl (Flomax) 0.4 MG CAP.ER.24H 1 CAP PO QPM PROSTATE (Reported) Warfarin Sodium (Coumadin) 5 MG TABLET 1 TAB PO 1700 BLOOD THINNER (Reported) Triage Note: PT PRESENTS TO THE ER C/O NAUSEA/VOMITTING AND ABD PAIN ONSET Sunday. PT STATES THAT IT IS GETTING WORSE SINCE Sunday.. PT STATES THAT THE ABD PAIN IS A 6/10 LLQ TOWARDS MID ABD. PT IS WEARING A BRACE FOR HIS NECK ON THE Aug PT HAD SURGERY AT [facility]. PT LBM LAST NIGHT. Triage Nurses Notes Reviewed? yes Onset: Gradual Duration: day(s): Timing: recent history Location: periumbilical HPI: 71YO male with hx of Crohn's disease sent in by Dr. Quiles for abdominal pain, nausea, and vomiting. Patient states that abdominal pain is periumbilical/left- sided, worsening since 3 days ago, 6-7/10 currently. Patient's reports that he is on several different medications, recently started baclofen is unsure if this is related to his current symptoms. Last bowel movement was today and normal. Patient last ate something last night. Patient denies fevers, chills, diarrhea, constipation, urinary symptoms, chest pain, dyspnea. (Kaycee SALAS,Sia Chance) Vital Signs & Intake/Output Vital Signs & Intake/Output Vital Signs Date Time Temp Pulse Resp B/P B/P Pulse O2 O2 Flow FiO2 Mean Ox Delivery Rate 11/02 1837 98.3 64 18 135/75 100 Nasal 2.0L Cannula 11/02 1632 98.2 11/02 1625 98.2 72 18 134/69 96 Nasal 2.0L Cannula 11/02 1507 98 Nasal 2.0L Cannula 11/02 1503 98.2 11/02 1405 98.2 68 18 138/76 99 Nasal 2.0L Cannula 11/02 1233 96.7 72 16 126/74 92 Room Air (Meghan ROSEN,Yovany Mcghee) Past History Travel History Traveled to [place] past 21 day No Medical History Any Pertinent Medical History? 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 DAUGHTER FH: Crohn's disease MOTHER, , Age 90; Cause: Old age. Relation not specified for: Appendicitis Hx Contributory? No (Sia Willis) Review of Systems Review of Systems Constitutional: Reports: no symptoms. EENTM: Reports: no symptoms. Respiratory: Reports: no symptoms. Cardiovascular: Reports: no symptoms. GI: Reports: see HPI. Genitourinary: Reports: no symptoms. Musculoskeletal: Reports: no symptoms. Skin: Reports: no symptoms. Neurological/Psychological: Reports: no symptoms. Hematologic/Endocrine: Reports: no symptoms. Immunologic/Allergic: Reports: no symptoms. All Other Systems: Reviewed and Negative (Sia Willis) Physical Exam Physical Exam General Appearance: well developed/nourished, no apparent distress, alert, awake Head: atraumatic, normal appearance Eyes: Bilateral: normal appearance. Ears, Nose, Throat, Mouth: hearing grossly normal Neck: normal inspection, supple, full range of motion Respiratory: normal breath sounds, no respiratory distress, lungs clear Cardiovascular: regular rate/rhythm Gastrointestinal: normal bowel sounds, soft, no organomegaly, periumbilical, LLQ tendenress without gaurding Back: normal inspection, normal range of motion Extremities: normal range of motion Neurologic/Psych: awake, alert, oriented x 3 Skin: intact, normal color, warm/dry Core Measures ACS in differential dx? No Sepsis Present: No Sepsis Focused Exam Completed? No (Kaycee SALAS,Sia Chance) Progress Differential Diagnosis: appendicitis, bowel obstruction, colon cancer, diverticulitis, gastritis, hepatitis, hernia, ischemic bowel, inflamm bowel dis, pancreatitis, peptic ulcer, PUD/GERD, SBO Diagnostic Imaging: Viewed by Me: CT Scan. Discussed w/RAD: CT Scan. Radiology Impression: PATIENT: ZACH HEATON PRESENT AGE: 71 PATIENT ACCOUNT NO: [id number] : 45 LOCATION: [facility] ORDERING PHYSICIAN: Sia SALAS SERVICE DATE: 11/02/17 EXAM TYPE: CAT - CT ABD & PELVIS W IV CONTRAST EXAMINATION: CT ABDOMEN AND PELVIS WITH CONTRAST CLINICAL INFORMATION: Periumbilical and left-sided abdominal pain. COMPARISON: CT scan abdomen and pelvis 02/16/2016. TECHNIQUE: Multidetector volumetric imaging was performed of the abdomen and pelvis following IV administration of 95 mL of Optiray 320 intravenous contrast. Sagittal and coronal reformatted images were obtained on the technologist's workstation. DLP: 261.81 mGy-cm FINDINGS: LUNG BASES: The visualized lung bases are unremarkable. There is a small hiatal hernia present. LIVER, GALLBLADDER, AND BILIARY TREE: The liver is normal in size, shape, and attenuation. No focal hepatic lesion or biliary ductal dilatation is present. There are calcified gallstones measuring up to about 1 cm in diameter at the neck of the gallbladder. There is no bile duct dilatation. The extrahepatic CBD measures about 7 mm. PANCREAS: Unremarkable. SPLEEN: Unremarkable. ADRENAL GLANDS: Unremarkable. KIDNEYS AND URETERS: There are scattered hypodensities in the cortex of the left kidney. Most are too small to fully characterize. There is a 1.2 cm hypodensity at the lower pole left kidney which has a density measurement of 12 Hounsfield units consistent with a renal cyst. There is no renal or ureteral calculi. There is no hydronephrosis. BLADDER: Unremarkable. GASTROINTESTINAL TRACT: There has been partial colectomy. There has been partial small bowel resection. The anastomotic site is in the right hemipelvis intact. There is no bowel obstruction. There is no bowel wall thickening or edema. No acute change of the bowel. Moderate volume of stool in the residual colon. ABDOMINAL WALL: No significant hernia is appreciated. LYMPH NODES: Normal. VASCULAR: IVC filter present. Normal enhancement of the abdominal and pelvic vasculature. PELVIC VISCERA: Pelvis obscured by right hip replacement. Prostate measures about 4 cm transverse. OSSEOUS STRUCTURES: Status post right hip replacement. No acute osseous abnormality. 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 There is marked degenerative change of the left hip. Subchondral sclerosis of the weightbearing portion of the left femoral head with flattening of the weightbearing portion of the femoral head. 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 This is stable since the exam of however. There are small subchondral cystic changes about the femoral head and the acetabulum with marginal spur of the left acetabulum. IMPRESSION: 1. No acute abnormality CT scan abdomen and pelvis. 2. Postsurgical changes of the bowel. No acute abnormality of bowel. 3. Cholelithiasis. 4. IVC filter present. DICTATED BY: Octavio Garcia MD DATE/TIME DICTATED:11/02/171700 VEGETABLE TIER:TRINO DATE/TIME TRANSCRIBED:11/02/171700 CONFIDENTIAL, DO NOT COPY WITHOUT APPROPRIATE AUTHORIZATION. <Electronically signed in Other Vendor System> SIGNED BY: Octavio Garcia MD 11/02/17 0379 Initial ED EKG: sinus rhythm @76bpm, PVC, nonspecific ST changes Prior EKG: unchanged (09/10/17) (Kaycee SALAS,Sia Chance) Plan of Care: Orders Procedure Date/time Status LIPASE 11/02 1315 Complete COMPREHENSIVE METABOLIC PANEL 11/02 1315 Complete CBC WITHOUT DIFFERENTIAL 11/02 131 Complete EKG 11/02 1150 Active Laboratory Tests 11/02/17 1455: CBC w Diff NO MAN DIFF REQ, RBC 4.94, MCV 82.5, MCH 26.9 L, MCHC 32.6 L, RDW 17.7 H, MPV 9.2, Gran % 60.6, Lymphocytes % 31.0, Monocytes % 6.9, Eosinophils % 1.3, Basophils % 0.2, Absolute Granulocytes 2.9, Absolute Lymphocytes 1.5, Absolute Monocytes 0.3, Absolute Eosinophils 0.1, Absolute Basophils 0 11/02/17 1445: Anion Gap 15, Estimated GFR 50 L, BUN/Creatinine Ratio 10.7, Glucose 80, Calcium 8.9, Total Bilirubin 0.8, AST 25, ALT 27, Alkaline Phosphatase 74, Total Protein 7.3, Albumin 4.0, Globulin 3.3, Albumin/Globulin Ratio 1.2, Lipase [address] scan is without evidence for acute abnormality. Patient has stable labs. Patient is in no acute distress, laying in stretcher comfortably. Patient feels ready to go home at this time. He has several medications prescribed for his gastrologist that he can take for pain. She was instructed to follow-up with his finish saw operator this week. He was given strict return precautions. Patient has had no episodes of vomiting here in the emergency department. The patient and his agree with the plan of care. The patient was seen by Dr. Christianson who agrees with this plan. (Kaycee SALAS,Sia Chance) (Meghan ROSEN,Yovany Mcghee) Departure Departure Disposition: HOME OR SELF CARE Condition: Stable Clinical Impression Primary Impression: Abdominal pain Qualifiers: Abdominal location: generalized Qualified Code: R10.84 - Generalized abdominal pain Secondary Impressions: Nausea & vomiting Qualifiers: Vomiting type: unspecified Vomiting Intractability: non-intractable Qualified Code: R11.2 - Nausea with vomiting, unspecified Referrals: Marko ROSEN,Artemio Webb (PCP/Family) Additional Instructions: Continue taking YOUR pain medication as prescribed by your specialist. Follow- up with Dr. Quiles next week. Slowly advance YOUR diet from clear liquids to soft bland foods like soup. Any worsening symptoms please return to the emergency department. Please note that there might be incidental findings in your evaluation that are unrelated to the current emergency department visit. Please notify your primary care doctor about this emergency department visit in order to obtain and review all of the testing performed so that these incidental findings can be monitored as needed. If you had an x-ray performed, please understand that some fractures may not be seen on the initial set of x-rays. If your symptoms persist you might need a repeat set of x-rays to check for such a fracture. If you had a laceration evaluated, please understand that foreign bodies such as glass or wood may not be visible to the naked eye or on plain x-rays. If the wound becomes red, swollen, increasingly more painful or if there is any drainage from the wound, please have it reevaluated by a physician for the possibility of a retained foreign body. If you're unable to follow up as outlined in the discharge instructions please return to the emergency department. Thank you for choosing the [facility] Emergency Department for your care. It was a pleasure to serve you today. Departure Forms: Customer Survey General Discharge Information (Kaycee SALAS,Sia Chance) PA/TRANSFORMER ASSEMBLY SUPERVISOR Co-Sign Statement Statement: ED Attending supervision documentation- [X] I saw and evaluated the patient. I have also reviewed all the pertinent lab results and diagnostic results. I agree with the findings and the plan of care as documented in the PA's/TRANSFORMER ASSEMBLY SUPERVISOR's documentation. Patient presents for evaluation of abdominal pain at the request of his GI specialist. Physical examination reveals mild distention and diffuse tenderness. [] I have reviewed the ED Record and agree with the PA's/TRANSFORMER ASSEMBLY SUPERVISOR's documentation. [] Additions or exceptions (if any) to the PAs/TRANSFORMER ASSEMBLY SUPERVISOR's note and plan are summarized below: [] (Meghan ROSEN,Yovany Mcghee)
[2017-11-02 15:15] LABS: ABSOLUTE BASOPHIL COUNT 0 /CUMM (0.0-0.2); ABSOLUTE EOSINOPHIL COUNT 0.1 /CUMM (0.0-0.7); ABSOLUTE GRANULOCYTE CT 2.9 /CUMM (1.4-6.5); ABSOLUTE LYMPH COUNT 1.5 /CUMM (1.2-3.4); ABSOLUTE MONOCYTE COUNT 0.3 /CUMM (0.10-0.60); BASOPHIL % 0.2 % (0.0-2.0); EOSINOPHIL % 1.3 % (0-5); GRANULOCYTE % 60.6 % (42.2-75.2); HEMATOCRIT 40.8 % (42-52); MEAN CORPUSCULAR HGB 26.9 PG (27.0-31.0); MEAN CORPUSCULAR HGB CONC 32.6 G/DL (33.0-37.0); MEAN CORPUSCULAR VOLUME 82.5 FL (80.0-94.0); MEAN PLATELET VOLUME 9.2 FL (7.4-10.4); PLATELET COUNT 201 /CUMM (130-400); RBC DISTRIBUTION WIDTH 17.7 % (11.5-14.5); RED BLOOD CELL CT 4.94 /CUMM (4.70-6.10); WHITE BLOOD CELL COUNT 4.8 /CUMM (4.8-10.8)
[2017-11-02] MEDS ORDERED: FLOMAX0.4 M1 PO (15:16)
[2017-11-02] MEDS ORDERED: GABAPENTIN400 M2 PO (15:17)
[2017-11-02] MEDS ORDERED: BACLOFEN10 M1 PO (15:18)
[2017-11-02] MEDS ORDERED: ROXICODONE5 M1 PO (15:19)
[2017-11-02] MEDS ORDERED: COUMADIN5 M2 PO (15:20)
--- NOTE | 2017-11-02 17:35 | CT SCAN REPORT ---
EXAMINATION: CT ABDOMEN AND PELVIS WITH CONTRAST CLINICAL INFORMATION: Periumbilical and left-sided abdominal pain. COMPARISON: CT scan abdomen and pelvis 02/16/2016. TECHNIQUE: Multidetector volumetric imaging was performed of the abdomen and pelvis following IV administration of 95 mL of Optiray 320 intravenous contrast. Sagittal and coronal reformatted images were obtained on the technologist's workstation. DLP: 261.81 mGy-cm FINDINGS: LUNG BASES: The visualized lung bases are unremarkable. There is a small hiatal hernia present. LIVER, GALLBLADDER, AND BILIARY TREE: The liver is normal in size, shape, and attenuation. No focal hepatic lesion or biliary ductal dilatation is present. There are calcified gallstones measuring up to about 1 cm in diameter at the neck of the gallbladder. There is no bile duct dilatation. The extrahepatic CBD measures about 7 mm. PANCREAS: Unremarkable. SPLEEN: Unremarkable. ADRENAL GLANDS: Unremarkable. KIDNEYS AND URETERS: There are scattered hypodensities in the cortex of the left kidney. Most are too small to fully characterize. There is a 1.2 cm hypodensity at the lower pole left kidney which has a density measurement of 12 Hounsfield units consistent with a renal cyst. There is no renal or ureteral calculi. There is no hydronephrosis. BLADDER: Unremarkable. GASTROINTESTINAL TRACT: There has been partial colectomy. There has been partial small bowel resection. The anastomotic site is in the right hemipelvis intact. There is no bowel obstruction. There is no bowel wall thickening or edema. No acute change of the bowel. Moderate volume of stool in the residual colon. ABDOMINAL WALL: No significant hernia is appreciated. LYMPH NODES: Normal. VASCULAR: IVC filter present. Normal enhancement of the abdominal and pelvic vasculature. PELVIC VISCERA: Pelvis obscured by right hip replacement. Prostate measures about 4 cm transverse. OSSEOUS STRUCTURES: Status post right hip replacement. No acute osseous abnormality. 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 There is marked degenerative change of the left hip. Subchondral sclerosis of the weightbearing portion of the left femoral head with flattening of the weightbearing portion of the femoral head. 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 This is stable since the exam of 02/16/2016 however. There are small subchondral cystic changes about the femoral head and the acetabulum with marginal spur of the left acetabulum. IMPRESSION: 1. No acute abnormality CT scan abdomen and pelvis. 2. Postsurgical changes of the bowel. No acute abnormality of bowel. 3. Cholelithiasis. 4. IVC filter present.
[2017-11-02 18:37] VITALS: BP 135/75
== END 2017-11-02 18:57 ==
LOC: ERH 11:49
PROVIDERS: Physician Assistant
DX: R11.2 Nausea with vomiting, unspecified (principal); R10.33 Periumbilical pain
CPT/HCPCS: 74177; 93005; 93010; 96361; 96374; J0131